=== PATIENT | male | born 1990 | race Caucasian/White ===

== ENCOUNTER 2017-01-07 07:46 | Day surgery (SDC) | payer MEDICAID, OTHER ==
[2017-01-07] MEDS ORDERED: Dexamethasone IV* 4 MG/ML 1 ML (4 MG) ONE (08:04)
[2017-01-07] MEDS ORDERED: Clindamycin 900 MG IVPREMIX(* 900 MG/50 ML SDV IV ONE (08:04)
[2017-01-07] MEDS ORDERED: Famotidine IV* 10 MG/ML 2 ML (20 mg) ONE (08:04)
[2017-01-07] MEDS ORDERED: Buffered Lidocaine 1% SYRIN* 5 ML/SYR SYRINGE ONE (08:05)
[2017-01-07] MEDS ORDERED: fentaNYL* 50 MCG/ML 2 ML VIAL (100 MCG VIAL) ONE ×2 (09:09→09:54)
[2017-01-07] MEDS ORDERED: Midazolam* 1 MG/ML 5 ML VIAL (5 MG) ONE (09:09)
[2017-01-07] MEDS ORDERED: Lidocaine 2% PF * 5 ML VIAL ONE (09:20)
[2017-01-07] MEDS ORDERED: Propofol* 10 MG/ML 20 ML BTL IV PUSH ONE ×2 (09:20→10:19)
[2017-01-07] MEDS ORDERED: Bupivacaine 0.25% SDV* 30 ML ONE (09:28)
[2017-01-07] MEDS ORDERED: Ketorolac INJ* 30 MG/ML 1 ML VIAL IV PRN (09:49)
[2017-01-07] MEDS ORDERED: PROCHLORPERAZINE INJ 5 MG/ML 2 ML VIAL IV PRN (09:49)
[2017-01-07] MEDS ORDERED: HYDROcodone/ACETAMIN 5-325 MG* 1 TAB PO PRN (09:49)
[2017-01-07] MEDS ORDERED: fentaNYL* 50 MCG/ML 2 ML VIAL (100 MCG VIAL) IV PRN (09:49)
[2017-01-07] MEDS ORDERED: oxyCODONE/Acetamin 5/325 MG* TAB PO PRN (09:49)
[2017-01-07] MEDS ORDERED: KETAMINE HCL* 50 MG/ML 10 ML VIAL ONE (10:27)
[2017-01-07] MEDS ORDERED: Ondansetron INJ* 2 MG/ML VIAL ONE (10:28)
[2017-01-07 12:18] VITALS: BP 139/98
--- NOTE | 2017-01-08 07:11 | OP ---
DATE OF OPERATION: 01/07/17 [facility] DATE OF : 89 SURGEON: Roni Saldana MD FISCAL TECHNICIAN: JUSTIN Bonilla ANESTHESIOLOGIST: Dr. Ervin. ANESTHESIA: Digital block with monitored anesthesia care. PRE-OP DIAGNOSES: Left index finger laceration over the radial aspect of the middle phalanx with the radial neurovascular bundle lacerated and probable partial flexor tendon laceration. POST-OP DIAGNOSES: 1. Left index finger radial digital nerve laceration just proximal to the level of the trifurcation. 2. Left index finger radial digital artery laceration. 3. Left index finger zone I flexor digitorum profundus high-grade partial laceration, greater than 60%. OPERATIVE PROCEDURE: 1. Debridement of skin and subcutaneous tissue. 2. Repair of left index finger radial digital nerve with synthetic conduit. 3. Repair of left index finger zone 1 flexor digitorum profundus tendon high- grade partial laceration. INDICATIONS: Thien had a traumatic lacerated left index finger with a knife on 12/25/16. He has no sensation distal to the laceration. It is also very painful and difficult for him to flex down the finger. I talked to him about risks and benefits of surgery. He had elected to proceed. ESTIMATED BLOOD LOSS: 25 mL. COMPLICATIONS: None. FINDINGS: As expected, laceration of the radial digital neurovascular bundle and partial tendon laceration to the FDP in zone 1. DESCRIPTION OF PROCEDURE: Thien was seen in the preoperative holding area. The correct side, site, and procedure were identified. We came back to the operating room where he got some anesthesia and then I performed a digital block with 0.25% Marcaine. The arm was then prepped and draped in the usual fashion. A pre-scrub had been performed. The formal time-out was performed. I began by utilizing the oblique traumatic laceration to reopen the wound. This was extended in Lewis-type fashion proximally and distally. The traumatized skin edges were debrided. The subcutaneous tissue that was just a bit dirty deep to that was likewise debrided so that all we were left with was clean healthy tissue. Full thickness flaps were raised right off the flexor tendon sheath. There was a quite bit of scar tissue radially. The digital nerve was encountered proximally and distally and healthy tissue, the neurovascular bundle was dissected out until I got to the area where it was lacerated. It was starting to get quite stuck down in scar tissue, but it was mobilized. It was lacerated just proximal and at the beginning of the trifurcation. The radial digital artery was likewise completely lacerated. There was a traumatic laceration through the distal aspect of the A3 lucinda. Just deep to that, there was a high-grade partial laceration of the FDP tendon that was right around 60% of the tendon. It was actually a little bit deeper on the radial side and then tailed out a bit more on the ulnar side. Ultimately , I did decide it was a pretty high-grade partial laceration and I decided to repair instead of debride it. I went ahead and excised a little bit of the A3 lucinda and just of the most proximal aspect of the A4 lucinda, so I had about 1 cm to 1.5 cm of good visualizable tendon. Once I had enough exposure to correctly repair the tendon, I went ahead and took a 4-0 Prolene suture and I placed a 4-strand cruciate core suture repair across the partial tendon laceration. This provided excellent apposition of the lacerated edges. I then contoured everything and added a 5-0 Prolene epitendinous suture across the lacerated area as well. Once I placed the epitendinous suture, things looked very nice and so I went ahead and turned my attention to the neurovascular bundle. The digital nerve was from the digital artery. The laceration again which was right at the level was starting to trifurcate. The digital nerve was cleaned of the mesoneurial tissue. I had asked for the microscope to be present , but they did not have it available as they did not have a microscope cover available to fit the microscope. I therefore used 3.5 loupe magnification to do the debridement of the nerve. I used a sterile tongue-depressor and an 11- blade to freshen up the nerve edges on either side of the laceration. Once I had done the debridement, there was a 4- mm gap. I went ahead and brought in a ruler and measured the nerve. It was 3 mm proximally and about 2 mm distally. I elected to use a 3 mm x 15 mm Avance conduit for the repair. I went ahead and brought in a 9-0 nylon suture and using a horizontal mattress suture, tied over the conduit. I went ahead and pulled the proximal aspect of the nerve into the conduit several millimeters. I then went ahead and brought the distal aspect of the nerve into the conduit in similar fashion with another horizontal mattress suture tied over the conduit. I went ahead and placed just a couple of simple 9-0 nylon sutures just between the edge of the nerve and the edge of the conduit to secure the nerve inside the conduit and prevent any backing out. I think I placed two additional sutures proximally and another suture to distally. I measured the gap inside the conduit as this is a transparent conduit and after the nerve was secured nicely to the conduit, the gap between the 2 nerve edges inside the conduit was 4 mm again. The finger was nicely perfused preop and so I elected not to repair the radial digital artery. At this point, I went ahead and irrigated out the wound. I let down the tourniquet just to make sure that the finger pinked up immediately. It pinked up instantaneously. Please note that I had exsanguinated the arm with the Esmarch and inflated the tourniquet to 250 mm proximal to making the skin incision. After a few minutes, I went ahead and gravity exsanguinated the extremity and put off the tourniquet one more time as there was just a little bit of oozing and wanted to make sure we had a nice clean closure. It was a bit of a venous tourniquet, so I took the pressure up to 270 mmHg. The skin edges were then laid back and closed with 5-0 nylon simple interrupted sutures. The wound was dressed with Xeroform, couple of 4x4s. The finger was wrapped loosely with Debo. The hand and wrist were then placed in a dorsal blocking plaster splint holding the wrist in neutral flexion and the MP joint at 90 degrees of flexion. The tourniquet was deflated and the finger pinked up immediately again. Thien was then woken up and taken to the recovery room in stable condition. [id number]/[facility] #: [id number] ESTEVAN
== END 2017-01-07 12:19 | disposition home or self-care (01) ==
LOC: OREAST 07:46
PROVIDERS: ATTEND Orthopaedic Surgery Hand Surgery
DX: S64.491A Injury of digital nerve of left index finger, initial encounter (principal); S66.321A Laceration of extensor muscle, fascia and tendon of left index finger at wrist and hand level, initial encounter; S61.211A Laceration without foreign body of left index finger without damage to nail, initial encounter; W26.0XXA Contact with knife, initial encounter; Y93.89 Activity, other specified; Y92.89 Other specified places as the place of occurrence of the external cause; Y99.0 Civilian activity done for income or pay
CPT/HCPCS: J1100; J2250; J2405; J2704; J3010